=== PATIENT | male | born 1970 | race Caucasian/White ===

== ENCOUNTER 2017-09-11 11:18 | Inpatient (IN) | payer OTHER ==
[2017-09-11 12:18] VITALS: BMI 21.5
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
[2017-09-11] MEDS ORDERED: IBUPROFEN 400 MG TABLET (FP) PO PRN (17:50)
[2017-09-11] MEDS ORDERED: LOPERAMIDE HCL 2 MG CAPSULE PO PRN (17:50)
[2017-09-11] MEDS ORDERED: MAGNESIUM HYDROX 2400MG/30ML ORAL SUSPENSION 30 ML CUP PO PRN (17:50)
[2017-09-11] MEDS ORDERED: MAGNESIUM CITRATE 300 ML BOTTLE PO PRN (17:50)
[2017-09-11] MEDS ORDERED: guaiFENesin/D-METHORPHAN HB 10 ML UNIT-DOSE CUPS PO PRN (17:50)
[2017-09-11] MEDS ORDERED: P-EPHED 60MG/TRIPROLIDI 2.5MG TABLET PO PRN (17:50)
[2017-09-11] MEDS ORDERED: MENTHOL/PHENOL 1 EACH UD MM PRN (17:50)
[2017-09-11] MEDS ORDERED: hydrOXYzine PAMOATE 25 MG CAPSULE (FP) PO PRN (17:50)
[2017-09-11] MEDS ORDERED: ACETAMINOPHEN 325 MG TABLET (FP) PO PRN (17:50)
[2017-09-11] MEDS ORDERED: MAG HYDROX/AL HYDROX/SIMETH 30 ML UNIT-DOSE CUP PO PRN (17:50)
[2017-09-11] MEDS ORDERED: diazePAM 5 MG TABLET PO ONE (18:15)
[2017-09-11] MEDS: THIAMINE HCL 100 MG TABLET (FP) PO SCH (22:30)
[2017-09-11] MEDS: diazePAM 5 MG TABLET PO SCH (22:30)
[2017-09-11] MEDS: MELATONIN 5 MG TABLETS PO PRN (22:31)
[2017-09-11 23:04] LABS: URINE APPEARANCE CLEAR; URINE BILIRUBIN NEGATIVE (<2.0 mg/dL); URINE COLOR DKYELLOW; URINE GLUCOSE (UA) NEGATIVE (NEGATIVE); URINE KETONE NEGATIVE (NEGATIVE); URINE LEUK ESTERASE NEGATIVE (NEGATIVE); URINE NITRITE NEGATIVE (NEGATIVE); URINE PROTEIN NEGATIVE (NEGATIVE); URINE UROBILINOGEN 4.0 E.U/dl mg/dL (0.2-1.0)
[2017-09-12] MEDS: diazePAM 5 MG TABLET PO SCH ×3 (05:23→22:23)
[2017-09-12 09:41] LABS: HEMATOCRIT 38.2 % (35.4-49); HEMOGLOBIN 12.9 GM/dL (11.7-16.9); MCH 30.2 pg (25.7-33.7); MCHC 33.6 g/dl (32.0-35.9); MEAN CELL VOLUME 89.9 fl (80-96); MEAN PLT VOLUME 7.2 fl (7.5-11.1); PLATELET COUNT 272 K/MM3 (134-434); RBC 4.25 M/mm3 (4.00-5.60); RDW 14.2 % (11.9-15.9); WHITE BLOOD COUNT 8.3 K/mm3 (4.0-10.0)
[2017-09-12 10:01] LABS: CHLORIDE 105 mmol/L (98-107); POTASSIUM 4.3 mmol/L (3.5-5.1); SODIUM 139 mmol/L (136-145)
[2017-09-12] MEDS: PRENATAL VITAMINS W/ FOLIC ACID TABLET (FP) PO SCH (10:19)
[2017-09-12] MEDS: diazePAM 5 MG TABLET PO PRN (10:19)
--- NOTE | 2017-09-12 10:36 | PN ---
[facility] CIWA - CIWA Score Nausea/Vomitin Muscle Tremors: 3 Anxiety: 3 Agitation: 3 Paroxysmal Sweats: 3 Orientation: 0-Oriented Tacttile Disturbances: 0-None Auditory Disturbances: 0-None Visual Disturbances: 0-None Headache: 0-None Present CIWA-Ar Total Score: 15 S Progress Note (SOAP) Subjective: Sleep disturbance abd pain Sweats Objective: 09/12/17 10:39 Sleeping deeply, arouses to tactile disturbance. No resp distress noted Vital Signs Temperature 98.4 F 09/12/17 09:58 Pulse Rate 48 L 09/12/17 09:58 Respiratory Rate 16 09/12/17 09:58 Blood Pressure 107/65 09/12/17 09:58 O2 Sat by Pulse Oximetry (%) Laboratory Last Values WBC 8.3 K/mm3 (4.0-10.0) 09/12/17 07:00 RBC 4.25 M/mm3 (4.00-5.60) 09/12/17 07:00 Hgb 12.9 GM/dL (11.7-16.9) 09/12/17 07:00 Hct 38.2 % (35.4-49) 09/12/17 07:00 MCV 89.9 fl (80-96) 09/12/17 07:00 MCH 30.2 pg (25.7-33.7) 09/12/17 07:00 MCHC 33.6 g/dl (32.0-35.9) 09/12/17 07:00 RDW 14.2 % (11.9-15.9) 09/12/17 07:00 Plt Count 272 K/MM3 (134-434) 09/12/17 07:00 MPV 7.2 fl (7.5-11.1) L 09/12/17 07:00 Sodium 139 mmol/L (136-145) 09/12/17 07:00 Potassium 4.3 mmol/L (3.5-5.1) 09/12/17 07:00 Chloride 105 mmol/L (98-107) 09/12/17 07:00 Carbon Dioxide 29 mmol/L (21-32) 09/12/17 07:00 Anion Gap 5 (8-16) L 09/12/17 07:00 BUN 16 mg/dL (7-18) 09/12/17 07:00 Creatinine 0.9 mg/dL (0.7-1.3) 09/12/17 07:00 Creat Clearance w eGFR > 60 (>60) 09/12/17 07:00 Random Glucose 78 mg/dL (74-106) 09/12/17 07:00 Calcium 8.9 mg/dL (8.5-10.1) 09/12/17 07:00 Total Bilirubin 0.2 mg/dL (0.2-1.0) 09/12/17 07:00 AST 18 U/L (15-37) 09/12/17 07:00 ALT 21 U/L (12-78) 09/12/17 07:00 Alkaline Phosphatase 81 U/L (45-117) 09/12/17 07:00 Total Protein 6.4 g/dl (6.4-8.2) 09/12/17 07:00 Albumin 3.4 g/dl (3.4-5.0) 09/12/17 07:00 Urine Color Dkyellow 09/11/17 22:50 Urine Appearance Clear 09/11/17 22:50 Urine pH 7.0 (5.0-8.0) 09/11/17 22:50 Ur Specific [place] 1.025 (1.001-1.035) 09/11/17 22:50 Urine Protein Negative (NEGATIVE) 09/11/17 22:50 Urine Glucose (UA) Negative (NEGATIVE) 09/11/17 22:50 Urine Ketones Negative (NEGATIVE) 09/11/17 22:50 Urine Blood Negative (NEGATIVE) 09/11/17 22:50 Urine Nitrite Negative (NEGATIVE) 09/11/17 22:50 Urine Bilirubin Negative (<2.0 mg/dL) 09/11/17 22:50 Urine Urobilinogen 4.0 e.u/dl mg/dL (0.2-1.0) 09/11/17 22:50 Ur Leukocyte Esterase Negative (NEGATIVE) 09/11/17 22:50 RPR Titer Nonreactive (NONREACTIVE) 09/12/17 07:00 labs noted Assessment: 09/12/17 10:46 withdrawal sx Plan: continue detox Increase hydration
[2017-09-12 10:40] LABS: ALBUMIN 3.4 g/dl (3.4-5.0); ALK PHOS 81 U/L (45-117); ANION GAP 5 (8-16); BILIRUBIN,TOTAL 0.2 mg/dL (0.2-1.0); BLOOD UREA NITROGEN 16 mg/dL (7-18); CALCIUM 8.9 mg/dL (8.5-10.1); CO2 29 mmol/L (21-32); CREATININE 0.9 mg/dL (0.7-1.3); GLUCOSE,RANDOM 78 mg/dL (74-106); SGOT/AST 18 U/L (15-37); SGPT/ALT 21 U/L (12-78); TOT PROT 6.4 g/dl (6.4-8.2)
[2017-09-12] MEDS ORDERED: METHADONE HCL 10 MG TABLET PO SCH (10:45)
[2017-09-12] MEDS ORDERED: METHADONE HCL 10 MG TABLET ONE (10:51)
[2017-09-12] MEDS ORDERED: METHADONE HCL 40 MG DISPERSABLE TABLET ONE (10:51)
[2017-09-12] MEDS: METHADONE 40 MG, METHADONE 10 MG PO SCH (10:53)
--- NOTE | 2017-09-12 14:44 | EKG ---
Test Reason : Blood Pressure : / mmHG Vent. Rate : 063 BPM Atrial Rate : 063 BPM P-R Int : 132 ms QRS Dur : 100 ms QT Int : 410 ms P-R-T Axes : 069 074 053 degrees QTc Int : 419 ms NORMAL SINUS RHYTHM NORMAL ECG NO PREVIOUS ECGS AVAILABLE Confirmed by FROILAN DORADO, NASREEN ([id number]) on 09/12/2017 2:43:58 PM Referred By: Confirmed By:NASREEN MCGOVERN MD
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
[2017-09-12] MEDS: THIAMINE HCL 100 MG TABLET (FP) PO SCH (22:23)
[2017-09-13] MEDS ORDERED: METHADONE HCL 40 MG DISPERSABLE TABLET ONE (04:37)
[2017-09-13] MEDS ORDERED: METHADONE HCL 10 MG TABLET ONE (04:37)
[2017-09-13] MEDS: METHADONE 40 MG, METHADONE 10 MG PO SCH (05:49)
[2017-09-13] MEDS: diazePAM 5 MG TABLET PO PRN ×2 (05:49→20:28)
[2017-09-13] MEDS: PRENATAL VITAMINS W/ FOLIC ACID TABLET (FP) PO SCH (10:13)
[2017-09-13] MEDS: diazePAM 5 MG TABLET PO SCH ×2 (10:13→22:23)
--- NOTE | 2017-09-13 12:38 | PN ---
[facility] CIWA - CIWA Score Nausea/Vomitin-No Nausea/No Vomiting Muscle Tremors: 3 Anxiety: 3 Agitation: 2 Paroxysmal Sweats: 2 Orientation: 2-Disoriented Date<2 days Tacttile Disturbances: 3-Moderate Itch/Numb/Burn Auditory Disturbances: 0-None Visual Disturbances: 1-Very Mild Sensitivity Headache: 0-None Present CIWA-Ar Total Score: 16 [facility] Progress Note (SOAP) Subjective: Sweating, Constipation, Stomach Cramping, Body Aches, Interrupted Sleep. Objective: PATIENT A & O X 2 (UNCERTAIN ABOUT CURRENT DAY / DATE). PATIENT OBSERVED AMBULATING ON UNIT. NO ACUTE DISTRESS. 09/13/17 12:36 Vital Signs Temperature 96.4 F L 09/13/17 09:44 Pulse Rate 54 L 09/13/17 09:44 Respiratory Rate 18 09/13/17 09:44 Blood Pressure 119/75 09/13/17 09:44 O2 Sat by Pulse Oximetry (%) Laboratory Tests 09/11/17 09/12/17 09/12/17 22:50 07:00 07:00 WBC 8.3 RBC 4.25 Hgb 12.9 Hct 38.2 MCV 89.9 MCH 30.2 MCHC 33.6 RDW 14.2 Plt Count 272 MPV 7.2 L Sodium 139 Potassium 4.3 Chloride 105 Carbon Dioxide 29 Anion Gap 5 L BUN 16 Creatinine 0.9 Creat Clearance w eGFR > 60 Random Glucose 78 Calcium 8.9 Total Bilirubin 0.2 AST 18 ALT 21 Alkaline Phosphatase 81 Total Protein 6.4 Albumin 3.4 Urine Color Dkyellow Urine Appearance Clear Urine pH 7.0 Ur Specific [place] 1.025 Urine Protein Negative Urine Glucose (UA) Negative Urine Ketones Negative Urine Blood Negative Urine Nitrite Negative Urine Bilirubin Negative Urine Urobilinogen 4.0 e.u/dl Ur Leukocyte Esterase Negative RPR Titer 09/12/17 07:00 WBC RBC Hgb Hct MCV MCH MCHC RDW Plt Count MPV Sodium Potassium Chloride Carbon Dioxide Anion Gap BUN Creatinine Creat Clearance w eGFR Random Glucose Calcium Total Bilirubin AST ALT Alkaline Phosphatase Total Protein Albumin Urine Color Urine Appearance Urine pH Ur Specific Clear Urine Protein Urine Glucose (UA) Urine Ketones Urine Blood Urine Nitrite Urine Bilirubin Urine Urobilinogen Ur Leukocyte Esterase RPR Titer Nonreactive LABS NOTED. Assessment: 09/13/17 12:37 WITHDRAWAL SYMPTOMS. Plan: CONTINUE DETOX. INCREASE DAILY PO FLUID INTAKE. PRN MOM FOR CONSTIPATION.
[2017-09-13] MEDS: THIAMINE HCL 100 MG TABLET (FP) PO SCH (22:23)
[2017-09-13] MEDS: MELATONIN 5 MG TABLETS PO PRN (22:23)
[2017-09-14] MEDS ORDERED: METHADONE HCL 10 MG TABLET ONE (04:00)
[2017-09-14] MEDS ORDERED: METHADONE HCL 40 MG DISPERSABLE TABLET ONE (04:00)
[2017-09-14] MEDS: diazePAM 5 MG TABLET PO PRN ×2 (04:36→17:22)
[2017-09-14] MEDS: METHADONE 40 MG, METHADONE 10 MG PO SCH (05:02)
[2017-09-14] MEDS: PRENATAL VITAMINS W/ FOLIC ACID TABLET (FP) PO SCH (10:06)
[2017-09-14] MEDS: diazePAM 5 MG TABLET PO SCH ×2 (10:07→22:43)
--- NOTE | 2017-09-14 10:53 | PN ---
S Progress Note (SOAP) Subjective: ALERT O X 3, NAD. REPORTS DETOX TAPER PROCEEDING WELL. Objective: 09/14/17 10:53 Vital Signs 09/14/17 09/14/17 06:20 09:07 Temperature 95.2 F L 96.9 F L Pulse Rate 63 60 Respiratory 18 18 Rate Blood Pressure 126/84 118/77 Laboratory Tests 09/11/17 09/12/17 09/12/17 22:50 07:00 07:00 WBC 8.3 RBC 4.25 Hgb 12.9 Hct 38.2 MCV 89.9 MCH 30.2 MCHC 33.6 RDW 14.2 Plt Count 272 MPV 7.2 L Sodium 139 Potassium 4.3 Chloride 105 Carbon Dioxide 29 Anion Gap 5 L BUN 16 Creatinine 0.9 Creat Clearance w eGFR > 60 Random Glucose 78 Calcium 8.9 Total Bilirubin 0.2 AST 18 ALT 21 Alkaline Phosphatase 81 Total Protein 6.4 Albumin 3.4 Urine Color Dkyellow Urine Appearance Clear Urine pH 7.0 Ur Specific [place] 1.025 Urine Protein Negative Urine Glucose (UA) Negative Urine Ketones Negative Urine Blood Negative Urine Nitrite Negative Urine Bilirubin Negative Urine Urobilinogen 4.0 e.u/dl Ur Leukocyte Esterase Negative RPR Titer 09/12/17 07:00 WBC RBC Hgb Hct MCV MCH MCHC RDW Plt Count MPV Sodium Potassium Chloride Carbon Dioxide Anion Gap BUN Creatinine Creat Clearance w eGFR Random Glucose Calcium Total Bilirubin AST ALT Alkaline Phosphatase Total Protein Albumin Urine Color Urine Appearance Urine pH Ur Specific [place] Urine Protein Urine Glucose (UA) Urine Ketones Urine Blood Urine Nitrite Urine Bilirubin Urine Urobilinogen Ur Leukocyte Esterase RPR Titer Nonreactive Assessment: 09/14/17 10:53 WITHDRAWAL SX Plan: CONTINUE DETOX
[2017-09-14] MEDS ORDERED: IBUPROFEN 400 MG TABLET (FP) PO ONE (22:17)
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
[2017-09-14] MEDS: THIAMINE HCL 100 MG TABLET (FP) PO SCH (23:06)
[2017-09-15] MEDS ORDERED: METHADONE HCL 10 MG TABLET ONE (04:48)
[2017-09-15] MEDS ORDERED: METHADONE HCL 40 MG DISPERSABLE TABLET ONE (04:48)
[2017-09-15] MEDS: METHADONE 40 MG, METHADONE 10 MG PO SCH (05:05)
[2017-09-15 07:31] VITALS: BP 120/75; PULSE 70; TEMP 97.5
--- NOTE | 2017-09-15 08:28 | DS ---
[facility] Detox Discharge Summary Admission Date: 09/11/17 Discharge Date: 09/15/17 - History Present History: Alcohol Dependence, Sedative Dependence, MMTP Additional Comments: DETOX TAPER COMPLETED. ALERT O X 3. AMBULATING WITH STEADY GAIT. NAD. Pertinent Past History: PLEASE SEE DX BELOW - Physical Exam Results Vital Signs: Vital Signs Temperature 97.5 F L 09/15/17 07:40 Pulse Rate 70 09/15/17 07:40 Respiratory Rate 18 09/15/17 07:40 Blood Pressure 120/75 09/15/17 07:40 O2 Sat by Pulse Oximetry (%) Pertinent Admission Physical Exam Findings: WITHDRAWAL SX Laboratory Tests 09/11/17 09/12/17 09/12/17 22:50 07:00 07:00 WBC 8.3 RBC 4.25 Hgb 12.9 Hct 38.2 MCV 89.9 MCH 30.2 MCHC 33.6 RDW 14.2 Plt Count 272 MPV 7.2 L Sodium 139 Potassium 4.3 Chloride 105 Carbon Dioxide 29 Anion Gap 5 L BUN 16 Creatinine 0.9 Creat Clearance w eGFR > 60 Random Glucose 78 Calcium 8.9 Total Bilirubin 0.2 AST 18 ALT 21 Alkaline Phosphatase 81 Total Protein 6.4 Albumin 3.4 Urine Color Dkyellow Urine Appearance Clear Urine pH 7.0 Ur Specific [place] 1.025 Urine Protein Negative Urine Glucose (UA) Negative Urine Ketones Negative Urine Blood Negative Urine Nitrite Negative Urine Bilirubin Negative Urine Urobilinogen 4.0 e.u/dl Ur Leukocyte Esterase Negative RPR Titer 09/12/17 07:00 WBC RBC Hgb Hct MCV MCH MCHC RDW Plt Count MPV Sodium Potassium Chloride Carbon Dioxide Anion Gap BUN Creatinine Creat Clearance w eGFR Random Glucose Calcium Total Bilirubin AST ALT Alkaline Phosphatase Total Protein Albumin Urine Color Urine Appearance Urine pH Ur Specific [place] Urine Protein Urine Glucose (UA) Urine Ketones Urine Blood Urine Nitrite Urine Bilirubin Urine Urobilinogen Ur Leukocyte Esterase RPR Titer Nonreactive - Treatment Hospital Course: Detox Protocol Followed, Detoxed Safely, Responded well, Discharged Condition Good - Medication Discharge Medications: Ambulatory Orders Methadone [Dolophine -] 50 mg PO DAILY 09/11/17 NK [No Known Home Medication] 09/11/17 - Diagnosis (1) Alcohol dependence with uncomplicated withdrawal Current Visit: Yes Status: Acute (2) Nicotine dependence Current Visit: Yes Status: Acute Qualifiers: Nicotine product type: cigarettes Substance use status: in withdrawal Qualified Code(s): F17.213 - Nicotine dependence, cigarettes, with withdrawal (3) Methadone maintenance therapy patient Current Visit: Yes Status: Chronic (4) Uncomplicated sedative, hypnotic or anxiolytic withdrawal Current Visit: Yes Status: Acute (5) Weight loss Current Visit: Yes Status: Acute (6) Insomnia secondary to depression with anxiety Current Visit: Yes Status: Chronic - AMA Did Patient Leave Against Medical Advice: No
--- NOTE | 2017-09-15 08:28 | PN ---
[facility] Progress Note (SOAP) Subjective: DETOX TAPER COMPLETED. ALERT O X 3. NAD. PT STATES HE IS GOING HOME AND FOLLOWING UP AT HIS [facility] [place]. DENIES ANY DISCOMFORT AND STATES HE IS READY FOR DISCHARGE. Objective: 09/15/17 08:27 Vital Signs 09/15/17 09/15/17 09/15/17 00:30 01:40 03:30 Temperature 97.6 F Pulse Rate 54 L Respiratory 18 18 18 Rate Blood Pressure 101/50 09/15/17 09/15/17 09/15/17 03:35 03:46 05:40 Temperature 97.2 F L 97.2 F L 97.3 F L Pulse Rate 50 L 50 L 58 L Respiratory 18 18 18 Rate Blood Pressure 101/59 101/59 103/69 09/15/17 09/15/17 09/15/17 05:49 07:31 07:40 Temperature 97.3 F L 97.5 F L 97.5 F L Pulse Rate 58 L 70 70 Respiratory 18 18 18 Rate Blood Pressure 103/69 120/75 120/75 Laboratory Tests 09/11/17 09/12/17 09/12/17 22:50 07:00 07:00 WBC 8.3 RBC 4.25 Hgb 12.9 Hct 38.2 MCV 89.9 MCH 30.2 MCHC 33.6 RDW 14.2 Plt Count 272 MPV 7.2 L Sodium 139 Potassium 4.3 Chloride 105 Carbon Dioxide 29 Anion Gap 5 L BUN 16 Creatinine 0.9 Creat Clearance w eGFR > 60 Random Glucose 78 Calcium 8.9 Total Bilirubin 0.2 AST 18 ALT 21 Alkaline Phosphatase 81 Total Protein 6.4 Albumin 3.4 Urine Color Dkyellow Urine Appearance Clear Urine pH 7.0 Ur Specific [place] 1.025 Urine Protein Negative Urine Glucose (UA) Negative Urine Ketones Negative Urine Blood Negative Urine Nitrite Negative Urine Bilirubin Negative Urine Urobilinogen 4.0 e.u/dl Ur Leukocyte Esterase Negative RPR Titer 09/12/17 07:00 WBC RBC Hgb Hct MCV MCH MCHC RDW Plt Count MPV Sodium Potassium Chloride Carbon Dioxide Anion Gap BUN Creatinine Creat Clearance w eGFR Random Glucose Calcium Total Bilirubin AST ALT Alkaline Phosphatase Total Protein Albumin Urine Color Urine Appearance Urine pH Ur Specific [place] Urine Protein Urine Glucose (UA) Urine Ketones Urine Blood Urine Nitrite Urine Bilirubin Urine Urobilinogen Ur Leukocyte Esterase RPR Titer Nonreactive Assessment: 09/15/17 08:27 MEDICALLY STABLE Plan: D/C PT TODAY.
[2017-09-15] MEDS: PRENATAL VITAMINS W/ FOLIC ACID TABLET (FP) PO SCH (09:29)
[2017-09-15] MEDS ORDERED: diazePAM 5 MG TABLET PO SCH (10:00)
== END 2017-09-15 08:58 | disposition home or self-care (01) | DRG 773 ==
LOC: YASAS 11:18 → Y3N 17:04
PROVIDERS: ADMIT Surgery; ATTEND Surgery
PROC: HZ2ZZZZ Detoxification Services for Substance Abuse Treatment (ICD-10-PCS; principal; 2017-09-11)
DX: F10.230 Alcohol dependence with withdrawal, uncomplicated (principal); F13.230 Sedative, hypnotic or anxiolytic dependence with withdrawal, uncomplicated; F11.20 Opioid dependence, uncomplicated; F17.213 Nicotine dependence, cigarettes, with withdrawal; F14.20 Cocaine dependence, uncomplicated; F12.20 Cannabis dependence, uncomplicated; F51.05 Insomnia due to other mental disorder; F19.24 Other psychoactive substance dependence with psychoactive substance-induced mood disorder; G47.00 Insomnia, unspecified; R63.4 Abnormal weight loss; Z68.21 Body mass index [BMI] 21.0-21.9, adult
CPT/HCPCS: 36415; 80053; 81003; 85027; 86593; 93005; 93010